=== PATIENT | female | born 1940 | race Caucasian/White ===

== ENCOUNTER → 2023-08-11 08:06 | Outpatient (REF) | payer OTHER, SELFPAY | LOC: RAD 08:06 | PROVIDERS: ATTENDING PHYSICIAN Family Medicine | DX: R09.89 Other specified symptoms and signs involving the circulatory and respiratory systems (principal) | CPT/HCPCS: 93880 ==

== ENCOUNTER 2023-09-04 19:40 | Emergency (ER) | payer OTHER, SELFPAY ==
[2023-09-04 19:42] VITALS: BP 198/97
--- NOTE | 2023-09-04 22:05 | ED.GENMED ---
History of Present Illness
General
Chief Complaint: Fall
Source: patient and family
Time Seen by Provider: 09/04/23 21:59
Travel History
Have you had any contact with someone who has COVID-19?: No
Do you have any symptoms of coronavirus? Fever > 100 degrees, chills, cough, shortness of breath, sore throat, loss of taste or smell, muscle aches, or headache?: No
History of Present Illness
History of Present Illness:
82-year-old female with past medical history of hypertension, hyperlipidemia, CHF, COPD presenting emergency department for evaluation after she tripped on her feet and excellently fell hitting the left side of her head. Patient has an
abrasion/laceration that would not stop bleeding which is why they presented to the emergency department. There is no reported loss consciousness, headache, vision changes, focal weakness or numbness or any other concerns. Patient is unsure if her
tetanus vaccine is up-to-date.
Past History
Past History
ED Past Medical History: CHF, COPD, HTN, Hypercholesterolemia and Hypothyroidism
ED Past Surgical History: Appendectomy and Tonsilectomy
Social History
Tobacco: Non-smoker
Alcohol: None
Drug: None
Personal:
Living: with family
Review of Systems
Review of Systems
All Other Systems: ROS reviewed and negative except as documented in HPI and ROS
Phy Exam
Physical Exam
Physical Exam:
GENERAL: Alert , in no apparent distress
EYE: conjunctiva clear
Head: Superficial skin abrasion with central area of superficial laceration/skin tear without any active over the left anterior forehead
NECK: Supple,
ENT: mmm.
LUNGS: no acute respiratory distress
NEUROLOGICAL: Alert and oriented
SKIN: Warm and dry, skin intact.
MUSCULOSKELETAL: well perfused.
PSYCH: Normal and appropriate interaction.
Scores
Heart Failure Risk
Heart Failure Risk Score: Not Applicable
Heart Score for Chest Pain Patients
STEMI patient?: Not applicable
Withdrawal Assessment of Alcohol
Withdrawal Assessment Completed?: Not applicable
Course
Orders/Labs/Results
Orders:
Orders
09/04/23 19:46
CT Head W/o Iv Contrast Urgent
Comment:
Reason For Exam: fall hit head
09/04/23 22:05
Tetanus/Diphth/Acelpertussis [Adacel] 0.5 ml IM .ONCE ONE
Vital Signs
Initial and Last Documented VS:
Initial Vital Signs
Temp Pulse Resp BP Pulse Ox
98.1 F 96 18 198/97 98
09/04/23 19:42 09/04/23 19:42 09/04/23 19:42 09/04/23 19:42 09/04/23 19:42
Last Documented Vital Signs
Temp Pulse Resp BP Pulse Ox
98.1 F 90 18 183/90 98
09/04/23 19:42 09/04/23 22:48 09/04/23 19:42 09/04/23 22:48 09/04/23 19:42
MDM/Problems Addressed
Differential Diagnosis Includes:
Accidental fall abrasion, contusion, intracranial bleeding
MDM/Problems Addressed:
82-year-old female present emergency department for evaluation of accidental fall resulting in left forehead abrasion/laceration. CT of the head was ordered from triage and ultimately negative for any acute pathology. I did place a little bit of
Dermabond over the deeper abrasion/laceration so patient would not have any further bleeding. Will update patient's tetanus. Motrin/Tylenol as needed for headache if needed. Place ice over the affected area as needed as well. Patient stable for
discharge home
*Radiology
Radiology exam reviewed: radiology read reviewed
*Pulse Oximetry
Patient hypoxic: no
*Critical Care Note
Total Time (30-74mins, 75-104mins- exclusive of procedures): Not Applicable
ED Attending Note
-
Portions of this chart may have been created with voice recognition software.� Occasional wrong word or��sound alike� substitutions may have occurred due to the inherent limitations of voice recognition software.
Discharge Plan
Departure
Patient Disposition: Home (Routine Discharge)
Date of Disposition: 09/04/23
Time of Disposition: 22:05
Patient with high blood pressure during this ER visit?: Yes
Discharge Problem:
Accidental fall, Abrasion of forehead
Instructions: Head Injury in Adults (DC)
Referrals:
Miguel Glover DO [Family Provider] -
Interventions
Interventions:
*Risk Screen - Suicide Last Done: 09/04/23 19:42
*General Assessment Last Done: 09/04/23 19:42
*Neglect/Abuse Screening Last Done: 09/04/23 19:42
*ED COVID-19 Vaccine History Last Done: 09/04/23 19:42
*Nursing Disposition Last Done: 09/04/23 22:48
ED-Musculoskeletal Assessment Last Done: 09/04/23 22:37
ED- Neurological Assessment Last Done: 09/04/23 22:37
ED-Skin Assessment Last Done: 09/04/23 22:37
Discharge Date and Time
Discharge Date/Time: 09/04/23 22:49
Print Language: GAMBIAN
[2023-09-04] MEDS: ADACEL 0.5 ML IM (22:29)
[2023-09-04 22:47] VITALS: BP 183/90
[2023-09-04 22:48] VITALS: BP 183/90
== END 2023-09-04 22:49 | disposition home or self-care (01) ==
LOC: EMR 19:40
PROVIDERS: EMERGENCY PHYSICIAN Emergency Medicine; FAMILY PHYSICIAN Family Medicine
DX: S00.81XA Abrasion of other part of head, initial encounter (principal); W01.0XXA Fall on same level from slipping, tripping and stumbling without subsequent striking against object, initial encounter; I11.0 Hypertensive heart disease with heart failure; I50.9 Heart failure, unspecified; J44.9 Chronic obstructive pulmonary disease, unspecified; Z23 Encounter for immunization
CPT/HCPCS: 99284; 12011; 90471; 70450; 90715